=== PATIENT | female | born 1940 | race Caucasian/White ===

== ENCOUNTER 2016-12-20 14:11 | Observation (INO) | payer BC ==
--- NOTE | ~2016-12-20 | HP ---
History And Physical [facility] [address] [place]. [address] NAME: FRANK CRAWFORD : [birth year] STATUS : ADM Reece PAT#: [id number] AGE: 76 ADM/REG DATE : 12/20/16 MR#: [id number] REPORT SERV DATE: 12/20/16 DICTATED BY: CHIKI SOOD DATE: 12/20/16 REPORT STATUS : Draft TRANSCRIBED BY: MODSammy DATE: 12/20/16 DATE OF ADMISSION: 12/20/2016 REASON FOR ADMISSION: NSTEMI. HISTORY OF PRESENT ILLNESS: Ms Crawford is a 76-year-old female with a history of obesity, hypertension, diabetes, and depression who presents to [facility] with new onset of left-sided/central chest pressures and tightness radiating downward as of this morning. She states that she had been very in her usual state of health up until this morning when she was trying to rest at home around 8 a.m., at which point in time, she developed left- sided/central chest tightness and the tightness persisted and felt as though it was going downward into her body. She describes sensation as very odd. She has not had this before. Given its persistence, she decided to come in for further evaluation and care. She states that she had her heart checked out (details unknown) many years ago and that workup was negative. She otherwise has not had any specific symptoms. She denies having any dizziness, lightheadedness, palpitations, shortness of breath, or loss of consciousness. Of note, she self discontinued her diabetic medications (metformin and glipizide) sometime over the past one year. She vaguely states that she was not tolerating the medicines, so she stopped them. In addition, she did not take her lisinopril this morning for unclear reasons. Given these collective findings, I questioned her compliance with medications in general. Finally, she states that sublingual nitroglycerin, which was administered in the ER resolved her chest discomfort. ALLERGIES: CODEINE. PAST MEDICAL HISTORY: As above. SOCIAL HISTORY: The patient lives at home with her and functions independently under normal circumstances. She denies drinking alcohol, ever smoking, or doing drugs. FAMILY HISTORY: Not significant for heart disease. REVIEW OF SYSTEMS: As above, all other systems otherwise negative. HOME MEDICATIONS: Presently includes only lisinopril 20 mg p.o. daily and Effexor. PHYSICAL EXAMINATION: VITAL SIGNS: BP 240/110 on admission, now down to 180/80; temperature 97.8; HR, pulse of 70. GENERAL: Obese, no acute distress. Well developed, well nourished. NEURO: Awake, alert and oriented x3; no focal deficits, appropriate mood. HEENT: Moist mucous membranes, anicteric sclerae, no nasal discharge. NECK: No JVD, no carotid bruit. LUNGS: Clear to auscultation bilaterally, no wheezes, rales or rhonchi. CV: Regular rate and rhythm. 2/6 systolic murmur at the right sternal border. Otherwise, no rubs or gallops. History And Physical [address] [address] NAME: FRANK CRAWFORD : [birth year] STATUS : ADM Reece PAT#: [id number] AGE: 76 ADM/REG DATE : 12/20/16 MR#: [id number] REPORT SERV DATE: 12/20/16 DICTATED BY: CHIKI SOOD DATE: 12/20/16 REPORT STATUS : Draft TRANSCRIBED BY: ANG DATE: 12/20/16 EXT: No pitting edema, normal distal pulses. SKIN: Warm, dry and intact; no rash. PERTINENT TEST FINDINGS: EKG with sinus rhythm. Inferior Q-waves, left axis deviation. No ischemic ST/T-wave changes. Hemoglobin 13.7, white blood cell count 9.2, potassium 4.0, creatinine 0.74, BUN 16, glucose 210. Troponin of 0.08 and now 0.20. Chest x-ray without acute cardiopulmonary abnormality. IMPRESSION AND PLAN: Ms Crawford is a pleasant 76-year-old female with a history of untreated diabetes (self-discontinued medications approximately one year ago, possibly longer), obesity, hypertension, and depression who presents with left-sided/central chest tightness that started this morning in the setting of hypertensive crisis and non-ST elevation myocardial infarction. In light of her up trending enzymes, despite improved control of her blood pressure, I have discussed with her the probable plan to proceed with coronary angiography with possible percutaneous coronary intervention. As she is a high-risk substrate with diabetes and obesity being her main risk factors, I believe that she may very well have coronary heart disease. In addition, she has evidence of prior infarct (inferior Q-waves) on her EKG. I have discussed with her the risks and benefits of proceeding with coronary angiography with possible percutaneous coronary intervention and she is amenable with proceeding. Otherwise, I will consult the hospitalist to help with management/re- initiation of medications for diabetes. Check an echocardiogram. Start pertinent cardiovascular protective medications. VR/MODL Chiki Sood MD / [id number] CC: MD Vega Mayberry M.D.
--- NOTE | ~2016-12-20 | CN ---
Consultation Report [facility] [address] [place]. [address] NAME: FRANK AUGUSTIN : 36 STATUS : ADM Reece PAT#: [id number] AGE: 76 ADM/REG DATE : 12/20/16 MR#: [id number] REPORT SERV DATE: 12/21/16 DICTATED BY: DEE MATA DATE: 12/21/16 REPORT STATUS : Draft TRANSCRIBED BY: MODL DATE: 12/21/16 HOSPITALIST CONSULTATION DATE OF CONSULTATION: 12/20/2016 REASON FOR CONSULTATION: Diabetes management and re-initiation of treatment per Dr. Mendoza. HISTORY OF PRESENT ILLNESS: This is an awake, alert and oriented, pleasant 76-year-old female, who was admitted to Dr. Mendoza today for observation for acute coronary syndrome. She admits to a history of diabetes, which we have been asked to follow during this hospital stay. She reports that she has not taken her metformin or glipizide in greater than one year due to adverse side affects of the medication. She was unable to tolerate the GI disturbance that accompanied those medications. She does not recall her previous hemoglobin A1c and does not regularly check her blood sugars at home. She denies excessive thirst, excessive urination, abdominal pain, dizziness, vision disturbances, headache, palpitations. She also denies edema and chest pain at this time. PAST MEDICAL HISTORY: Significant for: 1. Type 2 diabetes. 2. Hypertension. 3. Depression. 4. Obesity. PAST SURGICAL HISTORY: Significant for: 1. , 1970. 2. Back surgery, approximately 10 years ago. 3. Total hip arthroplasty, 2001. 4. Total hip arthroplasty, 2003. SOCIAL HISTORY: She is a never smoker and denies alcohol and illicit drug use. She lives at home with her . PRIMARY CARE PHYSICIAN: The patient's PCP is Dr. Bertrand. FAMILY HISTORY: Significant for her mother from complications related to liver cancer, father is also with a history of diabetes as well as stroke. ALLERGIES: INCLUDE CODEINE AND TRAMADOL. HOME MEDICATION LIST: 1. Lisinopril 20 mg p.o. daily. 2. Effexor 150 mg p.o. daily. REVIEW OF SYSTEMS: Consultation Report [facility] [address] [place]. [address] NAME: FRANK AUGUSTIN DOB: [birth year] STATUS : ADM Reece PAT#: [id number] AGE: 76 ADM/REG DATE : 12/20/16 MR#: [id number] REPORT SERV DATE: 12/21/16 DICTATED BY: DEE MATA DATE: 12/21/16 REPORT STATUS : Draft TRANSCRIBED BY: MODSammy DATE: 12/21/16 A complete 10-point review of systems was negative except as per HPI. PHYSICAL EXAMINATION: VITAL SIGNS: T 98.8, P 75, RR 20, BP 161/96, SpO2 of 92% on room air. GENERAL: Well-appearing, obese female, in no acute distress. NEUROLOGIC: Awake, alert, and oriented x3 without focal deficit. HEENT: Normocephalic, atraumatic without lymphadenopathy. NECK: Supple. No JVD. LUNGS: CTA in all lung santiago with normal respiratory effort. CV: Regular rhythm. S1, S2 auscultated. ABDOMEN: Soft, round, nontender. Bowel sounds active in all quadrants. No masses. EXTREMITIES: No cyanosis. Cap refill within normal limits. Normal distal pulses. Generalized edema in the bilateral lower extremities. PSYCHIATRIC: Normal affect. SKIN: Clean, dry, and intact with mucous membranes pink and moist. PERTINENT LABORATORIES: The patient's electrolytes are unremarkable. Serum glucose of note was 210 with followup fingerstick 155. PERTINENT IMAGING: Chest x-ray shows no acute process. EKG was read by Dr. Mendoza, and his dictated note indicates ST changes, Q-waves. Echo is pending, ordered by the primary team. ASSESSMENT AND PLAN: 1. Diabetes type 2. This is chronic and currently in unknown status. The patient has not been taking her medications due to the adverse side affects of these medications and has not been regularly checking her blood sugars at home. We will put her on sliding scale insulin level 1, ask the special educator to come speak with her. Dr. Mendoza, the attending, has ordered a hemoglobin A1c to be done with labs. We will follow her labs and encourage close outpatient followup with her PCP. We will adjust her sliding scale as necessary. Extensive education was provided on alternatives to metformin and glipizide if the patient is unable to tolerate. The patient verbalizes understanding of the need for close followup. 2. Hypertension,this is chronic. We will defer to the primary team for management of this. We will continue her current medications and follow along with labs. 3. Depression, this is also chronic. Again deferring to the primary team, and we will follow as requested. We will continue her current medications that she is currently well managed on this regimen. 4. Acute coronary syndrome, this is acute, and we will defer the management of this to the primary team, noting that an echocardiogram is ordered and pending. Thank you for this consult. We are pleased to follow this patient with you. This consult was completed through thorough review of [employer], old records, [employer], and current chart as well as thorough interview with the patient and her . Consultation Report [address] [place]. [address] NAME: FRANK AUGSUTIN : 36 STATUS : ADM Reece PAT#: [id number] AGE: 76 ADM/REG DATE : 12/20/16 MR#: [id number] REPORT SERV DATE: 12/21/16 DICTATED BY: DEE MATA DATE: 12/21/16 REPORT STATUS : Draft TRANSCRIBED BY: ANG DATE: 12/21/16 [facility]/ANG Dee Mata NP / [id number]
[2016-12-20 14:37] LABS: BASOPHILS 0.8 %; BASOPHILS ABSOLUTE 0.07 10/3/uL (0.0-0.16); EOSINOPHILS 1.5 %; EOSINOPHILS ABSOLUTE 0.14 10/3/uL (0.0-0.53); ER CBC TAT 0 Hrs 18 Mins; HEMATOCRIT 41.8 % (36.0-48.0); HEMOGLOBIN 13.7 g/dL (12.0-16.0); IMMATURE GRANULOCYTES 0.5 %; IMMATURE GRANULOCYTES ABSOLUTE 0.05 10/3/uL (0.0-0.11); LYMPHOCYTES 28.6 %; LYMPHOCYTES ABSOLUTE 2.63 10/3/uL (0.67-4.30); MEAN CORPUSCULAR HEMOGLOB 30.5 pg (26.0-34.0); MEAN PLATELET VOLUME 10.9 fL (9.2-13.0); MONOCYTES 6.9 %; MONOCYTES ABSOLUTE 0.63 10/3/uL (0.21-1.20); NEUTROPHILS 61.7 %; NEUTROPHILS ABSOLUTE 5.67 10/3/uL (2.02-8.40); RBC DISTRIBUTION WIDTH 13.4 % (12.0-16.0); RED CELL COUNT 4.49 10/6/uL (4.0-5.6); WHITE BLOOD CELLS 9.2 10/3/uL (4.5-10.5)
[2016-12-20 14:38] LABS: MANUAL DIFF NO %; MEAN CORPUS HGB CONC 32.8 g/dL (32.0-36.0); MEAN CORPUSCULAR VOLUME 93.1 fL (80-100); PLATELET COUNT 231 10/3/uL (150-400)
[2016-12-20 14:46] LABS: PARTIAL THROMBO TIME 27.4 SEC (22.5-37.2); PROTIME (NOT ORD) 13.1 SEC (12.0-14.5)
[2016-12-20 14:51] LABS: BUN (BLOOD UREA NITROGEN) 16 MG/DL (6-23); CALCIUM, SERUM 8.9 MG/DL (8.5-10.4); CHLORIDE, SERUM 105 MMOL/L (96-112); CO2 (CARBON DIOXIDE) 26 MMOL/L (24-34); CREATININE 0.74 MG/DL (0.55-1.02); GFR AFRICAN AMERICAN 90 ML/MIN (>=60); GFR NON AFRICAN AMERICAN 78 ML/MIN (>=60); GLUCOSE, SERUM 210 MG/DL (60-99); SODIUM, SERUM 141 MMOL/L (135-148)
[2016-12-20 14:54] LABS: CHEST PAIN PROFILE TAT 0 Hrs 35 Mins; TROPONIN I 0.08 NG/ML (<0.05)
[2016-12-20] MEDS ORDERED: PRIN20 PO (17:36)
[2016-12-20] MEDS ORDERED: EFFEXOR XR150 MG PO (17:36)
[2016-12-21 01:40] LABS: BASOPHILS 0.3 %; BASOPHILS ABSOLUTE 0.03 10/3/uL (0.0-0.16); EOSINOPHILS 1.9 %; EOSINOPHILS ABSOLUTE 0.17 10/3/uL (0.0-0.53); HEMATOCRIT 39.9 % (36.0-48.0); HEMOGLOBIN 13.7 g/dL (12.0-16.0); IMMATURE GRANULOCYTES 0.3 %; IMMATURE GRANULOCYTES ABSOLUTE 0.03 10/3/uL (0.0-0.11); LYMPHOCYTES 39.4 %; LYMPHOCYTES ABSOLUTE 3.54 10/3/uL (0.67-4.30); MEAN CORPUS HGB CONC 34.3 g/dL (32.0-36.0); MEAN CORPUSCULAR HEMOGLOB 31.5 pg (26.0-34.0); MEAN CORPUSCULAR VOLUME 91.7 fL (80-100); MEAN PLATELET VOLUME 10.7 fL (9.2-13.0); MONOCYTES ABSOLUTE 0.63 10/3/uL (0.21-1.20); NEUTROPHILS 51.1 %; NEUTROPHILS ABSOLUTE 4.58 10/3/uL (2.02-8.40); PLATELET COUNT 220 10/3/uL (150-400); RBC DISTRIBUTION WIDTH 13.3 % (12.0-16.0); RED CELL COUNT 4.35 10/6/uL (4.0-5.6)
[2016-12-21 01:41] LABS: MANUAL DIFF NO %
[2016-12-21 01:47] LABS: BUN (BLOOD UREA NITROGEN) 14 MG/DL (6-23); CALCIUM, SERUM 8.4 MG/DL (8.5-10.4); CHLORIDE, SERUM 107 MMOL/L (96-112); CHOL/HDL RATIO(NOT ORDER) 3.6 (0-5); CHOLESTEROL 186 MG/DL (< 200); CO2 (CARBON DIOXIDE) 27 MMOL/L (24-34); CREATININE 0.65 MG/DL (0.55-1.02); GFR AFRICAN AMERICAN 99 ML/MIN (>=60); GFR NON AFRICAN AMERICAN 85 ML/MIN (>=60); HDL CHOLESTEROL 52 MG/DL (> 49); LDL CHOLESTEROL 97 MG/DL (< 130); NON-HDL CHOLESTEROL 134 MG/DL (< 160); POTASSIUM, SERUM 3.8 MMOL/L (3.5-5.3); SGPT(ALT) 29 U/L (5-65); SODIUM, SERUM 143 MMOL/L (135-148); TRIGLYCERIDE 189 MG/DL (< 150)
[2016-12-21 01:48] LABS: PARTIAL THROMBO TIME 34.8 SEC (22.5-37.2)
[2016-12-21 01:49] LABS: CK-MB 2.3 NG/ML; CPK 82 U/L (0-200); GLUCOSE, SERUM 148 MG/DL (60-99); TROPONIN I 0.17 NG/ML (<0.05)
[2016-12-21 09:15] LABS: CK-MB 1.8 NG/ML; CPK 64 U/L (0-200); TROPONIN I 0.14 NG/ML (<0.05)
[2016-12-21] MEDS ORDERED: NORV5 PO (17:50)
[2016-12-21] MEDS ORDERED: LIPITOR40 PO (17:51)
[2016-12-21] MEDS ORDERED: ASAB PO (17:51)
[2016-12-21] MEDS ORDERED: COREG6 PO (17:52)
[2016-12-21] MEDS ORDERED: LISINOPRIL40 MG PO (17:53)
[2016-12-21] MEDS ORDERED: GLUCOTROL5 PO (17:55)
== END 2016-12-21 18:39 | disposition home or self-care (01) ==
LOC: ER 14:11 → CDU1 20:17 → CDU2 20:56
PROVIDERS: Emergency Medicine; Student in an Organized Health Care Education/Training Program
DX: I21.4 Non-ST elevation (NSTEMI) myocardial infarction (principal); I24.9 Acute ischemic heart disease, unspecified; I10 Essential (primary) hypertension; E11.9 Type 2 diabetes mellitus without complications; E66.9 Obesity, unspecified; F32.9 Major depressive disorder, single episode, unspecified; Z88.5 Allergy status to narcotic agent; Z79.899 Other long term (current) drug therapy; Z98.890 Other specified postprocedural states; Z88.8 Allergy status to other drugs, medicaments and biological substances; Z96.643 Presence of artificial hip joint, bilateral
CPT/HCPCS: 71020; 80048; 80061; 82550; 82553; 82962; 83036; 83735; 84460; 84484; 85025; 85610; 85730; 93005; 93306; 96372; 99285; A9270-GY; G0378